=== PATIENT | female | born 1945 | race Caucasian/White ===

== ENCOUNTER 2018-04-25 12:08 | Day surgery (SDC) | payer MEDICARE, BC ==
[~2018-04-25] VITALS: Ht 162.6 cm; Wt 80.0 kg
[~2018-04-25 12:08] MED LIST: BIOT5TAB PO; CETI10TA22 PO; CHOL10003 PO; CYAN10005 PO; HYDROmorphone 2 MG/ML VIAL IV PRN; LIDOCAINE 1% PF 2 ML VIAL. ID PRN; MELA3TAB2 PO; MORPHINE SULFATE 4 MG/ML VIAL. IV PRN; ONDANSETRON PF 4 MG/2 ML VIAL. IV PRN; PROCHLORPERAZINE 10 MG/2 ML VIAL. IV PRN; TIZA4TAB PO; fentaNYL PF VIAL 100 MCG/2 ML VIAL IV PRN
[2018-04-25] MEDS: IV RINGERS,LACTATED 1000ML 1,000 ML IV SCH (12:49)
[2018-04-25] MEDS ORDERED: PROPOFOL 20 ML IV ONE (13:41)
[2018-04-25] MEDS ORDERED: DEXAMETHASONE SOD PHOS 20 MG/5 ML VIAL. ONE (13:41)
[2018-04-25] MEDS ORDERED: LIDOCAINE 2% PF Vial for OR 5 ML VIAL. ONE (13:41)
[2018-04-25] MEDS ORDERED: ONDANSETRON PF 4 MG/2 ML VIAL. ONE (13:41)
[2018-04-25] MEDS ORDERED: fentaNYL PF VIAL 250 MCG/5 ML VIAL ONE (13:43)
[2018-04-25] MEDS: CIPROFLOXACIN 400MG PREMIX 200 ML IV ONE (14:35)
[2018-04-25] MEDS: IOHEXOL 300 MG/ML 100ML VIAL. ONE (15:08)
[2018-04-25] MEDS: LIDOCAINE 2% TOPICAL JELLY 30GM TUBE. TP ONE (15:09)
[2018-04-25] MEDS ORDERED: SEVOFLURANE > 120 MINUTES. IH ONE (16:57)
--- NOTE | 2018-04-25 17:06 | PDOC4 ---
OPERATIVE NOTE Date: Date: Apr 25, 2018 Pre-Op Diagnosis: right kidney stone Post-Op Diagnosis: same Procedure Performed: right ureteroscopy, laser of stone, stent placement. let retrograde pyelogram Surgeon: Valente Hdz MD Anesthesia Type: general Blood Loss: 0 Specimans Obtained: right kidney stones Findings: right kidney stones. no left kidney hydronephrosis or obstruction Complications: none Operative Note: see dictation VALENTE HDZ MD Apr 25, 2018 17:06
--- NOTE | 2018-04-25 17:07 | DISCH ---
DISCHARGE INSTRUCTIONS Condition on Discharge Condition on Discharge: Stable Activity After Discharge Activity Instructions for Disc: No restrictions Exercise Instruction after Dis: Walk 15 min, 3 x per day Driving Instructions after Dis: Do not drive today Diet after Discharge Diet after Discharge: Regular Follow-Up Follow up with: Dr. Hdz in 1 week for stent removal. VALENTE HDZ MD Apr 25, 2018 17:07
[2018-04-25] MEDS ORDERED: HYDR-3164 PO (17:10)
[2018-04-25] MEDS ORDERED: OXYB5TAB7 PO (17:10)
[2018-04-25] MEDS ORDERED: HYDROcodone/APAP 5/325MG 1 TAB TABLET PO ONE ×2 (17:30)
--- NOTE | 2018-04-25 17:40 | OP ---
DATE OF SURGERY: 04/25/2018 SURGEON: Kendrick Hdz MD. CABLE MACHINE OPERATOR: None. PREOPERATIVE DIAGNOSIS: Right kidney stone. POSTOPERATIVE DIAGNOSIS: Right kidney stone. PROCEDURE PERFORMED: 1. Right ureteroscopy with laser of stone and stent placement. 2. Left retrograde pyelogram. ANESTHESIA TYPE: General. INDICATIONS: This is a 73-year-old female with suspected recent passage of a small left ureter stone. She was also found to have a 22-mm large right kidney stone. After discussion of risks, benefits and alternatives, she elected to undergo the above procedure. Informed consent was obtained. DESCRIPTION OF PROCEDURE: The patient was taken to the operating room where general anesthesia was induced. She was placed in dorsal lithotomy position and sterilely prepped and draped. A timeout was performed. A rigid cystoscope was advanced through the urethra and into the bladder. The bladder was inspected and appeared normal throughout. The left ureteral orifice was cannulated with a ureteral catheter and a left retrograde pyelogram was performed, which showed normal appearing ureter and no hydronephrosis. The contrast from the kidney drained promptly and no stones were noted along the course of the ureter or in the renal pelvis. Next, the right ureteral orifice was cannulated with a guidewire up into the renal pelvis. A large stone was noted in the lower pole. An access sheath was easily placed and then a safety wire. The access sheath was repositioned at the ureteropelvic junction. A flexible ureteroscope was advanced up the access sheath into the stone in the lower pole. The stone was then fragmented with a holmium laser into multiple fragments, 1-2 mm in size. The largest fragments were grasped with a basket and easily removed. There were multiple remaining fragments 1 mm and less or size that were left to drain. Each renal philipp was inspected and no significant or larger stones were noted. The access sheath and scope were slowly withdrawn and the ureter was inspected without any evidence of additional stones or ureteral injury. A 6 x 22 cm stent was backloaded over the guidewire and appropriate curls were noted on both ends. The bladder contents were emptied. The patient was then awakened and taken to the recovery room in stable condition. BLOOD LOSS: None. COMPLICATIONS: None. SPECIMEN: Right kidney stones. DISPOSITION: The patient will follow up in 1 week for stent removal. MODIFIER 22: Please note, due to the large size of this stone, 22 mm in size, that this procedure took twice as long as typical, over 2 hours. KENDRICK HDZ MD DR: ZORAIDA/joseluis JOB#: [id number] / [id number]
[2018-04-25 18:25] VITALS: BP 124/68
== END 2018-04-25 18:25 | disposition home or self-care (01) ==
LOC: SURG 12:08
PROVIDERS: ATTEND Urology
DX: N20.0 Calculus of kidney (principal); Z88.0 Allergy status to penicillin; Z88.2 Allergy status to sulfonamides; Z79.899 Other long term (current) drug therapy
CPT/HCPCS: 52332; 52352; 76000; C1769; C2617; J1100; J2001; J2405; J2704; J3010; Q9967